=== PATIENT | male | born 1985 | race Caucasian/White ===

== ENCOUNTER → 2020-12-10 09:46 | Outpatient (CLI) | payer OTHER, SELFPAY ==
[2020-12-10 21:06] LABS: SARS-CoV-2 RNA PCR Positive
== END ==
PROVIDERS: PCP Nurse Practitioner; Visit Provider Nurse Practitioner
DX: U07.1 COVID-19 (principal)
CPT/HCPCS: C9803; U0003; U0005

== ENCOUNTER 2020-12-19 16:45 | Emergency (ER) | payer OTHER, SELFPAY ==
--- NOTE | ~2020-12-19 | XR_ITS ---
XR chest 1V portable DATE: 12/19/2020 17:13 INDICATION: Shortness of breath, midsternal chest pain. Blue lips. Covid-positive. TECHNIQUE: Portable AP chest on 12/19/2020 at 1714 hours COMPARISON: None FINDINGS: Normal heart size. No hilar or mediastinal enlargement. No pulmonary infiltrate or consolidation, pleural effusion or pulmonary vascular congestion or pneumo thorax. Included skeletal structures are unremarkable. IMPRESSION: No active cardiopulmonary disease Reviewed, dictated and finalized at location B.
[2020-12-19 16:49] VITALS: BP 146/84; PULSE 99; RESP 20; TEMP 37; O2SAT 99
--- NOTE | 2020-12-19 16:52 | ECG_ITS ---
Measurements Intervals [place] Rate: 96 P: 44 AL: 165 QRS: 22 QRSD: 93 T: 34 QT: 315 QTc: 398 Interpretive Statements SINUS RHYTHM BASELINE ARTIFACT- I, II, III, AVR, AVL, AVF NORMAL ECG Electronically Signed On 12-19-2020 18:43:48 CDT by Keshawn George D.O.
--- NOTE | 2020-12-19 16:54 | ED.GENADULT ---
HPI - General Adult General Chief complaint: Shortness of Breath/Dyspnea Stated complaint: CP Time Seen by Provider: 12/19/20 16:53 History of Present Illness HPI narrative: Patient is a 35-year-old male otherwise healthy who comes to the ED today with concerns about lingering Covid symptoms. His primary concern is that yesterday he noticed that he was having some numbness around his lips and when he looked in the mirror they looked blue. They turned back to normal color on their own. Today after work he felt like he was more short of breath than normal and his lips turned blue again and he took a shower and they returned to normal color. Patient recently diagnosed with COVID-19, he was released from quarantine yesterday. He has been having chest tightness for the last 1 week and has been having dyspnea on exertion for the last 3 days. He returned to work today. Denies any fevers or lower extremity edema. Admits to anosmia. Related Data Home Medications Medication Instructions Recorded Confirmed No Home Medications 12/19/20 12/19/20 Allergies Allergy/AdvReac Type Severity Reaction Status Date / Time No Known Allergies Allergy Verified 12/19/20 17:51 Review of Systems Review of Systems: All systems reviewed & are unremarkable except as noted in HPI and below Exam Const: General: cooperative Other: Pleasant, well-appearing, no distress HENMT: Head: normal to inspection, normocephalic and atraumatic Ears: external ears normal General nose exam: Normal external nose present and Normal nares present Mouth: Yes Normal oral and palatal mucosa present, Yes lip normal, Yes tongue normal, Yes oropharynx normal and Yes moist mucous membranes Eyes: General: appearance normal, both eyes and all related structures Pupils: Equal, round and reactive pupils present Neck: Neck: normal visual inspection Chest: Chest palpation & inspection: normal inspection of the chest Resp: Effort & Inspection: normal respiratory effort, able to speak in complete sentences, normal respiratory pattern and no audible wheezes Auscultation: clear to auscultation bilaterally Cardio: Rate: regular rate Rhythm: regular rhythm GI: Inspection: normal to inspection Skin: General skin exam: normal color Neuro: General: patient oriented x3, gait normal, tone normal, moves all extremities, Normal light touch and pain sensation and CN's II-XI intact bilaterally Extrem: General: normal to inspection Psych: Appearance: grossly normal Course Course Emergency Course: EKG: Time: 1658. Rate: 96. Rhythm: Normal sinus rhythm. Normal axis. Slight artifact present however no obvious ST or T wave normalities. Normal EKG. Vital Signs Vital signs: Vital Signs Temperature 37.0 C 12/19/20 16:49 Pulse Rate 99 12/19/20 16:49 Respiratory Rate 20 12/19/20 16:49 Blood Pressure 146/84 H 12/19/20 16:49 Pulse Oximetry 99 12/19/20 16:49 Temperature 36.6 C 12/19/20 20:23 Pulse Rate 86 12/19/20 20:23 Respiratory Rate 16 12/19/20 20:23 Blood Pressure 138/91 H 12/19/20 20:23 Pulse Oximetry 98 12/19/20 20:23 Medical Decision Making MDM Narrative Medical decision making narrative: Elevated leukocytosis noted. However rest of lab work unremarkable. Patient felt better after some IV fluids and some Toradol. Discussed with patient if symptoms are likely inflammatory as he is recovering from Covid. Recommended rest and hydration with strict return to ED precautions, patient agreeable. Vital Signs Vital Signs: Vital Signs Temperature 37.0 C 12/19/20 16:49 Pulse Rate 99 12/19/20 16:49 Respiratory Rate 20 12/19/20 16:49 Blood Pressure 146/84 H 12/19/20 16:49 Pulse Oximetry 99 12/19/20 16:49 Temperature 36.6 C 12/19/20 20:23 Pulse Rate 86 12/19/20 20:23 Respiratory Rate 16 12/19/20 20:23 Blood Pressure 138/91 H 12/19/20 20:23 Pulse Oximetry 98 12/19/20 20:23 Lab Data Result diagrams: 0
[2020-12-19 17:15] LABS: Basophils Percent Auto 0.3 % (0.2-1.2); Eosinophils Absolute Auto 0.1 K/mm3 (0-0.3); Eosinophils Percent Auto 0.7 % (0-4.4); Hematocrit 42.4 % (42.0-52.0); Hemoglobin 14.4 g/dL (14.0-18.0); Immature Granulocyte Percent A 0.7 % (0-0.5); Lymphocytes Absolute Auto 3.16 K/mm3 (0.9-3.2); Lymphocytes Percent Auto 21.2 % (18.3-44.2); Mean Corpuscular Hemoglobin 29.9 pg (26-34); Mean Corpuscular Volume 88.1 fl (80-100); Mean Platelet Volume 9.6 fl (7.4-10.4); Monocytes Absolute Auto 0.9 K/mm3 (0.1-0.6); Monocytes Percent Auto 5.7 % (2.6-8.5); Neutrophils Absolute Auto 10.6 K/mm3 (1.3-6.7); Neutrophils Percent Auto 71.4 % (45.5-73.1); Platelet Count Result 298 k/mm3 (150-375); Red Blood Count 4.81 M/mm3 (4.6-6.20); Red Cell Distribution Width 12.4 % (11.5-14.5); White Blood Count 14.9 K/mm3 (4.5-10.0)
[2020-12-19 17:26] LABS: Anion Gap 7 mmol/L (8-16); Blood Urea Nitrogen 11 mg/dL (9-20); Calcium 8.8 mg/dL (8.4-10.2); Carbon Dioxide 30 mmol/L (22-30); Chloride 103 mmol/L (98-107); Estimated CRCL calculation 86 ml/min; Estimated Glomerular Filt Rate > 60; Glucose 117 mg/dL (75-110); Potassium 3.5 mmol/L (3.4-5.0); Sodium 140 mmol/L (137-145)
[2020-12-19] MEDS: LACTATED RINGERS 1,000 ML 999 ML IV CONT (17:52)
[2020-12-19] MEDS: KETOROLAC 30 MG/ML VIAL (*BKC) IV PUSH (17:52)
[2020-12-19 18:19] LABS: Add Urine Microscopic? NO; Appearance Urine Clear (Clear); Bilirubin Urine Negative (Negative); Blood Urine Negative (Negative); Color Urine Yellow (Yellow); Glucose Urine UA Negative (Negative); Ketones Urine Negative (Negative); Leukocyte Esterase Ur Negative LEU/UL (Negative); Nitrate Urine Negative (Negative); Protein Urine Negative (Negative); Specific Grav Ur 1.012 (1.001-1.035); Urobilinogen Urine Negative mg/dL (<2.0)
[2020-12-19 18:34] LABS: Lactic Acid Reflex 0.8 mmol/L (0.7-2.1)
[2020-12-19 18:40] VITALS: BP 139/94; PULSE 72; PULSE 73; RESP 18; O2SAT 98
[2020-12-19 18:41] VITALS: O2SAT 98
[2020-12-19 18:48] LABS: Troponin I < 0.012 ng/mL (0.000-0.034)
[2020-12-19 20:23] VITALS: BP 138/91; PULSE 86; RESP 16; TEMP 36.6; O2SAT 98
== END 2020-12-19 20:24 | disposition home or self-care (01) ==
PROVIDERS: Emergency Medicine; Physician Assistant Medical; Emergency Provider Emergency Medicine; PCP Nurse Practitioner
DX: U07.1 COVID-19 (principal); R06.02 Shortness of breath
CPT/HCPCS: 36415; 71045; 80048; 81003; 83605; 84484; 85025; 93005; 96361; 96374; 99284; J1885; J7120

== ENCOUNTER 2022-06-08 17:05 | Emergency (ER) | payer SELFPAY ==
--- NOTE | ~2022-06-08 | US_ITS ---
EXAMINATION: US scrotum doppler DATE: 06/08/2022 18:36 INDICATION: trauma swelling . TECHNIQUE: Grayscale and Doppler ultrasound images of the testes were obtained. COMPARISON: None. FINDINGS: The right testis measures 4.5 x 2.9 x 2.7 cm. The left testis measures 4.5 x 2.9 x 2.6 cm. No testicular mass. There is normal vascular flow to both testes. The right epididymis is normal with normal vascular flow. Small right epididymal cyst. The left epididymis is normal with normal vascula r flow. There is no varicocele or hydrocele. Bilateral scrotal skin thickening. IMPRESSION: Marked bilateral scrotal skin thickening, correlate for clinical symptoms of cellulitis. Reviewed, dictated and finalized at location K. IMPRESSION: Marked bilateral scrotal skin thickening, correlate for clinical symptoms of ce llulitis.
[2022-06-08 17:09] VITALS: BP 130/79; PULSE 105; RESP 16; TEMP 36.7; O2SAT 100
[2022-06-08 18:09] LABS: Appearance Urine Clear (Clear); Basophils Absolute Auto 0.1 K/mm3 (0.0-0.1); Basophils Percent Auto 0.8 % (0.2-1.2); Bilirubin Urine Negative (Negative); Blood Urine Negative (Negative); Color Urine Yellow (Yellow); Eosinophils Absolute Auto 0.5 K/mm3 (0-0.3); Eosinophils Percent Auto 3.7 % (0-4.4); Glucose Urine UA Negative (Negative); Hematocrit 44.9 % (42.0-52.0); Hemoglobin 14.9 g/dL (14.0-18.0); Immature Granulocyte Absolute 0.06 K/mm3 (0.00-0.031); Immature Granulocyte Percent A 0.5 % (0-0.5); Ketones Urine Negative (Negative); Leukocyte Esterase Ur Negative LEU/UL (Negative); Lymphocytes Absolute Auto 2.74 K/mm3 (0.9-3.2); Lymphocytes Percent Auto 21.8 % (18.3-44.2); Mean Corpuscular HGB Conc 33.2 g/dl (32-36); Mean Corpuscular Hemoglobin 30.5 pg (26-34); Mean Corpuscular Volume 91.8 fl (80-100); Mean Platelet Volume 9.2 fl (7.4-10.4); Monocytes Percent Auto 7.6 % (2.6-8.5); Neutrophils Absolute Auto 8.2 K/mm3 (1.3-6.7); Neutrophils Percent Auto 65.6 % (45.5-73.1); Nitrate Urine Negative (Negative); Platelet Count Result 256 k/mm3 (150-375); Protein Urine Negative (Negative); Red Blood Count 4.89 M/mm3 (4.6-6.20); Red Cell Distribution Width 12.6 % (11.5-14.5); Specific Grav Ur 1.015 (1.001-1.035); Urobilinogen Urine 0.2 mg/dL (<2.0); White Blood Count 12.6 K/mm3 (4.5-10.0); pH Urine 5.5 (5.0-9.0)
[2022-06-08 18:11] LABS: Mucus Urine Rare /lpf; RBC Urine 0-2 /hpf (0-2); Squamous Epithelial Cell Urine Rare /hpf (Few); WBC Urine 0-3 /hpf
[2022-06-08 18:13] LABS: Add Urine Microscopic? NO
[2022-06-08 18:22] LABS: Alanine Aminotransferase 26 U/L (6-50); Albumin Level 4.5 g/dL (3.5-5.1); Alkaline Phosphatase 58 U/L (38-126); Anion Gap 12 mmol/L (8-16); Aspartate Amino Transferase 51 U/L (17-59); Blood Urea Nitrogen 10 mg/dL (9-20); Calcium 9.1 mg/dL (8.4-10.2); Carbon Dioxide 24 mmol/L (22-30); Chloride 105 mmol/L (98-107); Estimated CRCL calculation 108 ml/min; Estimated Glomerular Filt Rate > 60; Glucose 135 mg/dL (65-110); Potassium 3.7 mmol/L (3.4-5.0); Sodium 141 mmol/L (137-145)
--- NOTE | 2022-06-08 18:25 | ED.MALEGU ---
HPI - Male Genitourinary General Chief complaint: Urogenital-Male Stated complaint: groin injury, Thursday following a trauma Time Seen by Provider: 06/08/22 17:29 History of Present Illness HPI Narrative: Patient is a 36-year-old male who presents ER with swelling and bruising to his scrotum and penis. Patient was driving his 0 turn lawnmower 2 days ago when he struck a 3 inch diameter stick that then shot up and struck him in the groin. It caused a small 1 similar laceration to the left side of his scrotal sac. He was evaluated at [facility] emergency department and had a CT scan abdomen pelvis. He was told that he had some blood in his scrotum but that he is otherwise okay and discharged home. Over the last couple days he has developed increased swelling and bruising which is caused him to have significant concern. He also has some aching in the right inguinal region and the right thigh. He has noticed no blood in his urine. He has not ejaculated to notice if there is any blood in his semen. Related Data Allergies Allergy/AdvReac Type Severity Reaction Status Date / Time No Known Allergies Allergy Verified 06/08/22 17:32 Review of Systems Review of Systems: All systems reviewed & are unremarkable except as noted in HPI and below Constitutional: Constitutional: Denies chills, Denies fatigue and Denies fever(s) Gastrointestinal: Gastrointestinal: Denies abdominal pain, Denies nausea and Denies vomiting Genitourinary: Genitourinary: Denies hematuria, Denies dysuria, Denies penile discharge and Reports testicular pain Comments: Scrotal swelling and bruising PMFSH Past Medical History Medical History (Updated 06/08/22 @ 21:13 by Baldo Reno MD) Healthy adult male Surgical History Surgical History (Updated 06/08/22 @ 20:17 by Baldo Reno MD) H/O inguinal hernia repair Social History Social History (Updated 06/08/22 @ 18:33 by Baldo Reno MD) Smoking status: Never smoker Exam Narrative: GENERAL: Well-appearing, well-nourished, and in no acute distress. HEAD: Normocephalic, atraumatic. : External genitalia with swelling to the scrotum and around the penis. There is dependent bruising to the scrotum. Left-sided scrotum has a 1.5 cm defect that is not draining. No overt redness/increased warmth. There is contusion to the penile glans and shaft. No discharge or blood from urethra. EXTREMITIES: Normal range of motion. No edema. SKIN: Warm, dry, no rash. NEURO: Alert and oriented x3. PSYCH: Normal mood and affect. Course Course Emergency Course: Discussed case with Dr. Whitehead. Recommends follow-up in 2 days and starting patient on Augmentin to treat as cellulitis. Patient aware of diagnosis and treatment plan. Also received imaging from [facility] that showed mild scrotal fluid bilaterally. Site of puncture wound not definitively seen by CT. Mild amount of dense fluid inferior to the left testicle likely due to blood. Vital Signs Vital signs: Vital Signs Temperature 98.0 F 06/08/22 17:09 Pulse Rate 105 H 06/08/22 17:09 Respiratory Rate 16 06/08/22 17:09 Blood Pressure 130/79 06/08/22 17:09 Pulse Oximetry 100 06/08/22 17:09 Oxygen Delivery Room Air 06/08/22 17:09 Temperature 98.0 F 06/08/22 17:09 Pulse Rate 105 H 06/08/22 17:09 Respiratory Rate 16 06/08/22 17:09 Blood Pressure 130/79 06/08/22 17:09 Pulse Oximetry 100 06/08/22 17:09 Oxygen Delivery Room Air 06/08/22 17:09 MDM - Male Genitourinary Lab Data Result diagrams: 06/08/22 18:00 06/08/22 18:01 Labs: Lab Results 06/08/22 06/08/22 06/08/22 Range/Units 18:00 18:00 18:01 WBC 12.6 H (4.5-10.0) K/mm3 RBC 4.89 (4.6-6.20) M/mm3 Hgb 14.9 (14.0-18.0) g/dL Hct 44.9 (42.0-52.0) % MCV 91.8 (80-100) fl MCH 30.5 (26-34) pg MCHC 33.2 (32-36) g/dl RDW 12.6 (11.5-14.5) % Plt Count 256 (150-3
[2022-06-08] MEDS: AMOXICILLIN/CLAVULANATE K 875-125 MG TAB 1 TABLET PO (21:12)
[2022-06-08 21:24] VITALS: BP 142/76; PULSE 80; RESP 16; O2SAT 98
== END 2022-06-08 21:25 | disposition home or self-care (01) ==
PROVIDERS: Emergency Provider Emergency Medicine; PCP Nurse Practitioner
DX: N49.2 Inflammatory disorders of scrotum (principal)
CPT/HCPCS: 36415; 76870; 80053; 81003; 85025; 93976; 99284; A9270

== ENCOUNTER 2022-06-13 15:18 | Outpatient (CLI) | payer SELFPAY ==
--- NOTE | ~2022-06-13 | CT_ITS ---
EXAMINATION: CT abdomen pelvis wo con DATE: 06/13/2022 15:51 INDICATION: Right lower quadrant abdominal pain. TECHNIQUE: Computed tomography (CT) of the abdomen and pelvis was performed without intravenous contr ast. Automated exposure control and iterative reconstruction technique were employed. The dose-length product was 806.82 mGy-cm. COMPARISON: None. FINDINGS: The visualized portions bases are clear without pneumonia or pleural effusion. The heart si ze is normal. No pericardial effusion. The liver, spleen, gallbladder, pancreas, adrenal glands, and kidneys are normal. There is no urolithiasis. There are no dilated loops of bowel. The appendix is no rmal. There are no pathologically enlarged lymph nodes. There is no free intraperitoneal fluid. There is a right inguinal hernia containing fat. There is fat stranding in right inguinal region. There is moderate lower lumbar spondylosis. IMPRESSION: 1. Right inguinal hernia containing fat. 2. Fat stranding in right inguinal region, consistent with inflammation. Reviewed, dictated and finalized at location A.
== END 2022-06-13 15:19 | disposition home or self-care (01) ==
PROVIDERS: PCP Nurse Practitioner; Visit Provider Nurse Practitioner Adult Health
DX: R10.31 Right lower quadrant pain (principal); K40.90 Unilateral inguinal hernia, without obstruction or gangrene, not specified as recurrent
CPT/HCPCS: 74176

== ENCOUNTER 2025-05-25 17:45 | Emergency (ER) | payer OTHER, SELFPAY ==
[2025-05-25 18:39] VITALS: BP 141/88; PULSE 98; RESP 16; TEMP 36.9; O2SAT 100
--- NOTE | 2025-05-25 19:05 | ED_ITS ---
HPI - Skin/Abscess/Foreign Bdy General Chief complaint: Skin/Abscess/Foreign Body Stated complaint: RASH Time Seen by Provider: 05/25/25 19:05 Source: patient Mode of arrival: ambulatory Limitations: no limitations History of Present Illness HPI narrative: 31-year-old male presented for complaint of a red itchy rash to torso and arms. Onset over 2 weeks. Says he started using Benadryl last night. Rash continues to spread since onset. Endorses some lesions had blisters that have ruptured. Denies lip, tongue, or throat swelling, shortness of breath or wheezing. Denies changes to soap, detergent, lotion, or any other exposures. No one else in the house or any contacts with similar symptoms. Denies pain or drainage to rash. Related Data Allergies Allergy/AdvReac Type Severity Reaction Status Date / Time No Known Allergies Allergy Verified 05/25/25 18:36 Review of Systems Review of Systems: CONSTITUTIONAL: Denies body aches, fever, chills, or sweats. EYES: Denies visual changes, redness, or discharge. ENT: Denies rhinorrhea, congestion CARDIOVASCULAR: Denies chest pain, palpitations, or edema. RESPIRATORY: Denies cough or dyspnea. GASTROINTESTINAL: Denies abdominal pain, nausea, vomiting, or diarrhea. SKIN: reports rash MUSCULOSKELETAL: Denies back pain, joint pain, or myalgia. NEUROLOGIC: Denies headache, numbness, tingling, or weakness. [facility] Past Medical History Medical History (Updated 05/25/25 @ 19:11 by Steph Carter APRN) Healthy adult male Surgical History Surgical History (Updated 06/08/22 @ 20:17 by Baldo Reno MD) H/O inguinal hernia repair Social History Social History (Updated 06/08/22 @ 18:33 by Baldo Reno MD) Smoking status: Never smoker Comments At time of signature, I have reviewed and agree with nursing past medical, surgical, social and family history unless otherwise noted. Please see nursing chart for further information. There is no relevant family history pertinent to the presenting complaint Exam Narrative: GENERAL: Well-appearing HEAD: Normocephalic, atraumatic. EYES: conjunctivae clear, and EOMI. ENT: Mucous membranes moist. Oropharynx without edema, erythema or lesions. NECK: Supple. No lymphadenopathy CHEST: Clear to auscultation. HEART: Regular rate and rhythm. SKIN: Warm, dry. Diffuse lightly erythematous papular rash noted to bilateral axilla and scattered over the chest abdomen and arms. Scattered irregular areas of dark erythematous dry papular rash patches. Few scabbed areas scattered over abdomen. NEURO: Alert and oriented x3. Course Course Emergency Course: Patient is aware of diagnosis, understands and agrees to treatment plan. Anticipatory guidance given. Patient agrees to follow-up as directed and is aware of reasons to seek care at the emergency department. Portions of this record may have been created with voice recognition software Level of Care: Express Care Visit Vital Signs Vital signs: Vital Signs Temperature 98.5 F 05/25/25 18:39 Pulse Rate 98 05/25/25 18:39 Respiratory Rate 16 05/25/25 18:39 Blood Pressure 141/88 H 05/25/25 18:39 Pulse Oximetry 100 05/25/25 18:39 Temperature 98.5 F 05/25/25 18:39 Pulse Rate 98 05/25/25 18:39 Respiratory Rate 16 05/25/25 18:39 Blood Pressure 141/88 H 05/25/25 18:39 Pulse Oximetry 100 05/25/25 18:39 Reviewed MDM - Skin/Abscess/Foreign Bdy MDM Narrative Medical decision making narrative: Discussed physical exam findings most c/w contact dermatitis. Reviewed RX. Niko chaves also send antibiotic as he reports exposure to the [place] water. Advised supportive measures and signs/symptoms to go to the ER. Pt is appropriate for outpt treatment and f/u. Differential Diagnosis Differential diagnosis: Likely abscess of skin or subcutaneous tissue, viral exanthem, dermatophytosis, urticaria, herpes zoster, cellulitis, eczema, insect bites, impetigo and contact dermatitis Discharge Plan Discharge Clinical Impression: Contact dermatitis Patient Disposition: Home Condition: Stable Instructions: Antibiotic Form, Contact Dermatitis (ED) Additional Instructions: Take steroids and Pepcid as directed. Take antibiotic as directed Benadryl every 8 hours as needed. Or you can take Zyrtec according to package directions Cool compresses to the sites of itching, avoid hot water. Avoid scratching to reduce the risk of infection Follow up with your primary care provider as needed in 1 week Go to the ER for worsening symptoms or concerns (lip, tongue, throat swelling/itching, trouble breathing etc) Patient Language: Lao Prescriptions: New famotidine [Pepcid] 40 mg tablet 40 mg PO DAILY Qty: 10 0RF prednisone 20 mg tablet 20 mg PO DAILY Qty: 18 0RF Rx Instructions: take 3 tablets daily for 3 days, then 2 tablets daily for 3 days then 1 tablet daily for 3 days cephalexin 500 mg capsule 500 mg PO Q8H 5 Days Qty: 15 0RF Follow-up/Referrals: PHYSICIAN,AVIATION MECHANIC [Primary Care Provider, Internal Medicine] Time of Disposition: 19:13
== END 2025-05-25 19:22 | disposition home or self-care (01) ==
PROVIDERS: Emergency Provider Nurse Practitioner Family
DX: L25.9 Unspecified contact dermatitis, unspecified cause (principal)
CPT/HCPCS: 99213; G0463